=== PATIENT | female | born 1970 | race Caucasian/White ===

== ENCOUNTER → 2016-08-09 | Outpatient (CLI) | payer MEDICAID ==
--- NOTE | 2016-08-10 09:14 | MM ---
Reason for exam: screening (asymptomatic). Last mammogram was performed 1 year and 3 months ago. History: Patient had first child at age 34. Benign right mammotome panel of the right breast, September 25, 2012. Physical Findings: A clinical breast exam by your physician is recommended on an annual basis and results should be correlated with mammographic findings. MG 3D Screening Mammo W/Cad Bilateral CC and MLO view(s) were taken. Prior study comparison: May 10, 2015, bilateral MG screening mammo w CAD. April 20, 2014, bilateral MG diagnostic mammo w CAD [facility]. The breast tissue is heterogeneously dense. This may lower the sensitivity of mammography. There is no discrete abnormality. No significant changes when compared with prior studies. ASSESSMENT: Negative, BI-RAD 1 RECOMMENDATION: Routine screening mammogram of both breasts in 1 year.
== END | disposition home or self-care (01) ==
LOC: RADMAMWWP 08:49
PROVIDERS: ATTEND Obstetrics & Gynecology
DX: Z12.31 Encounter for screening mammogram for malignant neoplasm of breast (principal)
CPT/HCPCS: 77063; G0202

== ENCOUNTER → 2017-03-30 | Outpatient (CLI) | payer MEDICAID ==
--- NOTE | 2017-03-30 15:06 | XR ---
EXAMINATION TYPE: XR foot complete RT DATE OF EXAM: 03/30/2017 COMPARISON: NONE HISTORY: Pain TECHNIQUE: Three views are submitted. FINDINGS: The osseous structures are intact . There is no acute fracture or dislocation. There is hypertrophic change of the head of the first metatarsal compatible with bunion. Narrowing of the joint space. No erosive changes IMPRESSION: 1. First MTP joint arthropathy correlate for bunion.
== END ==
LOC: RADXRMAIN 14:41
PROVIDERS: ATTEND Orthopaedic Surgery
DX: M19.071 Primary osteoarthritis, right ankle and foot (principal)

== ENCOUNTER → 2017-08-16 | Outpatient (CLI) | payer BC ==
[2017-08-16 08:00] LABS: T4, Free (Free Thyroxine) 0.77 ng/dL (0.78-2.19)
--- NOTE | 2017-08-17 09:25 | MM ---
Reason for exam: screening (asymptomatic). Last mammogram was performed 1 year ago. History: Patient had first child at age 34. Benign right mammotome panel of the right breast, September 25, 2012. Physical Findings: A clinical breast exam by your physician is recommended on an annual basis and results should be correlated with mammographic findings. MG Screening Mammo w CAD Bilateral CC and MLO view(s) were taken. Prior study comparison: August 09, 2016, bilateral MG 3d screening mammo w/cad. May 10, 2015, bilateral MG screening mammo w CAD. The breast tissue is heterogeneously dense. This may lower the sensitivity of mammography. No suspicious abnormality. Right biopsy marker central lower breast at posterior depth. No significant changes when compared with prior studies. ASSESSMENT: Negative, BI-RAD 1 RECOMMENDATION: Routine screening mammogram of both breasts in 1 year.
== END | disposition home or self-care (01) ==
LOC: RADMAMWWP 07:08
PROVIDERS: ATTEND Obstetrics & Gynecology
DX: Z12.31 Encounter for screening mammogram for malignant neoplasm of breast (principal); E78.4 Other hyperlipidemia
CPT/HCPCS: 77067; 80061; 82947; 84439; 84443

== ENCOUNTER → 2018-12-13 | Outpatient (CLI) | payer BC ==
--- NOTE | 2018-12-17 09:44 | MM ---
Reason for exam: screening (asymptomatic). Last mammogram was performed 1 year and 4 months ago. History: Patient had first child at age 34. Benign right mammotome panel of the right breast, September 25, 2012. Physical Findings: A clinical breast exam by your physician is recommended on an annual basis and results should be correlated with mammographic findings. MG 3D Screening Mammo W/Cad Bilateral CC and MLO view(s) were taken. Prior study comparison: August 16, 2017, bilateral MG screening mammo w CAD. August 09, 2016, bilateral MG 3d screening mammo w/cad. The breast tissue is heterogeneously dense. This may lower the sensitivity of mammography. Benign appearing bilateral calcifications. Previous mammotome biopsy in the right breast. No significant changes when compared with prior studies. ASSESSMENT: Benign, BI-RAD 2 RECOMMENDATION: Routine screening mammogram of both breasts in 1 year.
== END | disposition home or self-care (01) ==
LOC: RADMAMWWP 10:47
PROVIDERS: ATTEND Obstetrics & Gynecology
DX: Z12.31 Encounter for screening mammogram for malignant neoplasm of breast (principal)
CPT/HCPCS: 77063; 77067

== ENCOUNTER → 2020-01-19 | Outpatient (CLI) | payer BC ==
--- NOTE | 2020-01-21 10:20 | MM ---
Reason for exam: screening (asymptomatic). Last mammogram was performed 1 year and 1 month ago. History: Patient had first child at age 34. Benign right mammotome panel of the right breast, September 25, 2012. Took hormonal contraceptives for 12 years. Physical Findings: A clinical breast exam by your physician is recommended on an annual basis and results should be correlated with mammographic findings. MG 3D Screening Mammo W/Cad Bilateral CC and MLO view(s) were taken. Prior study comparison: December 13, 2018, bilateral MG 3d screening mammo w/cad. August 16, 2017, bilateral MG screening mammo w CAD. The breast tissue is heterogeneously dense. This may lower the sensitivity of mammography. No significant changes when compared with prior studies. ASSESSMENT: Benign, BI-RAD 2 RECOMMENDATION: Routine screening mammogram of both breasts in 1 year.
== END | disposition home or self-care (01) ==
LOC: RADMAMWWP 09:35
PROVIDERS: ATTEND Obstetrics & Gynecology
DX: Z12.31 Encounter for screening mammogram for malignant neoplasm of breast (principal)
CPT/HCPCS: 77063; 77067

== ENCOUNTER → 2021-03-17 | Outpatient (CLI) | payer BC ==
--- NOTE | 2021-03-18 13:14 | MM ---
Reason for exam: screening (asymptomatic). Last mammogram was performed 1 year and 2 months ago. History: Patient had first child at age 34. Benign right mammotome panel of the right breast, September 25, 2012. Took hormonal contraceptives for 12 years. Physical Findings: A clinical breast exam by your physician is recommended on an annual basis and results should be correlated with mammographic findings. MG 3D Screening Mammo W/Cad Bilateral CC and MLO view(s) were taken. Prior study comparison: January 19, 2020, bilateral MG 3d screening mammo w/cad. December 13, 2018, bilateral MG 3d screening mammo w/cad. The breast tissue is heterogeneously dense. This may lower the sensitivity of mammography. There is no discrete abnormality. No significant changes when compared with prior studies. ASSESSMENT: Negative, BI-RAD 1 RECOMMENDATION: Routine screening mammogram of both breasts in 1 year.
== END | disposition home or self-care (01) ==
LOC: RADMAMWWP 09:52
PROVIDERS: ATTEND Obstetrics & Gynecology

== ENCOUNTER → 2021-03-17 | Outpatient (CLI) | payer BC ==
[2021-03-18 01:11] LABS: African American GFR (CKD) 100.3 (60.0-200.0); Albumin 4.6 g/dL (3.80-4.90); Albumin/Globulin Ratio 1.92 (1.60-3.17); Anion Gap 11.7 mmol/L (4.00-12.00); BUN/Creat Ratio 17.5 Ratio (12.00-20.00); Calcium 9.7 mg/dL (8.7-10.3); Carbon Dioxide 23.3 mmol/L (21.6-31.8); Chol/HDL Ratio 2.37; Globulin 2.4 g/dL (1.6-3.3); LDL Cholesterol,Calculated 99.8 mg/dL (0.0-131.0); Non-African American GFR(CKD) 86.6 (60.0-200.0); Potassium 4.8 mmol/L (3.5-5.5); Total Bilirubin 0.6 mg/dL (0.2-1.2); VLDL Calculation 12.2 mg/dL (5.00-40.00)
== END | disposition home or self-care (01) ==
LOC: LABWHC1 08:57
PROVIDERS: ATTEND Nurse Practitioner
DX: Z00.00 Encounter for general adult medical examination without abnormal findings (principal); M79.10 Myalgia, unspecified site; E55.9 Vitamin D deficiency, unspecified; Z20.822 Contact with and (suspected) exposure to COVID-19
CPT/HCPCS: 36415; 80053; 80061; 82306; 83036; 84443

== ENCOUNTER → 2022-03-13 | Outpatient (CLI) | payer BC ==
[2022-03-13 11:36] LABS: ALT 18 U/L (8-44); AST 21 U/L (13-35); African American GFR (CKD) 90.2 (60.0-200.0); Albumin 4.6 g/dL (3.8-4.9); Albumin/Globulin Ratio 2.41 (1.60-3.17); Alkaline Phosphatase 43 U/L (41-126); BUN/Creat Ratio 14.38 Ratio (12.00-20.00); Blood Urea Nitrogen 12.5 mg/dL (9.0-27.0); Calcium 9.4 mg/dL (8.7-10.3); Carbon Dioxide 27.1 mmol/L (20.0-27.5); Chloride 103 mmol/L (96-109); Chol/HDL Ratio 2.25 Ratio; Globulin 1.9 g/dL (1.6-3.3); Glucose 89 mg/dL (70-110); LDL Cholesterol,Calculated 85.6 mg/dL (0.0-131.0); Non-African American GFR(CKD) 77.8 (60.0-200.0); Sodium 140 mmol/L (135-145); Total Protein 6.5 g/dL (6.2-8.2); VLDL Calculation 11.68 mg/dL (5.00-40.00)
== END | disposition home or self-care (01) ==
LOC: LABWHC1 07:50
PROVIDERS: ATTEND Nurse Practitioner
DX: Z00.00 Encounter for general adult medical examination without abnormal findings (principal); E55.9 Vitamin D deficiency, unspecified
CPT/HCPCS: 36415; 80053; 80061; 82306; 83036; 84443

== ENCOUNTER → 2022-03-22 | Outpatient (CLI) | payer BC ==
--- NOTE | 2022-03-24 11:40 | MM ---
Reason for Exam: Screening (asymptomatic). Last screening mammogram was performed 12 month(s) ago. Patient History: Menarche at age 13. First Full-Term at age 34. Late child-bearing (after 30). Patient used Hormonal Contraceptives for 12 years. 09/25/2012, Benign Core Biopsy on the right side. Paternal aunt had breast cancer. Last menstrual period: 02/20/2022 Risk Values: Meagan 5 year model risk: 1.6%. NCI Lifetime model risk: 14.2%. Prior Study Comparison: 12/13/2018 Bilateral Screening Mammogram, [facility]. 01/19/2020 Bilateral Screening Mammogram, [facility]. 03/17/2021 Bilateral Screening Mammogram, [facility]. Tissue Density: The breast tissue is heterogeneously dense. This may lower the sensitivity of mammography. Findings: Analyzed By CAD. Previous mammotome biopsy in the right breast. A few punctate calcifications subareolar left breast are typically benign. Otherwise, no discrete abnormality. Overall Assessment: Benign, BI-RAD 2 Management: Screening Mammogram of both breasts in 1 year. A clinical breast exam by your physician is recommended on an annual basis and results should be correlated with mammographic findings. Electronically signed and approved by: Moni Cullen M.D. Radiologist
== END | disposition home or self-care (01) ==
LOC: RADMAMWWP 13:19
PROVIDERS: ATTEND Obstetrics & Gynecology
DX: Z12.31 Encounter for screening mammogram for malignant neoplasm of breast (principal); Z80.3 Family history of malignant neoplasm of breast; Z98.890 Other specified postprocedural states
CPT/HCPCS: 77063; 77067

== ENCOUNTER → 2022-04-07 | Outpatient (CLI) | payer BC | END | disposition home or self-care (01) | LOC: LABWHC1 07:43 | PROVIDERS: ATTEND Nurse Practitioner | DX: Z91.018 Allergy to other foods (principal); J39.2 Other diseases of pharynx; R22.0 Localized swelling, mass and lump, head | CPT/HCPCS: 36415; 82784; 86001 ==

== ENCOUNTER → 2022-04-13 | Outpatient (CLI) | payer BC ==
[2022-04-14 14:27] LABS: Crab IgE <0.10 kU/L (<0.10); Crab IgE Class CLASS 0; Gluten IgE Class CLASS 0; Salmon IgE <0.10 kU/L (<0.10); Salmon IgE Class CLASS 0; Yeast Bakers/Brew IgE <0.10 kU/L (<0.10); Yeast Bakers/Brew IgE Class CLASS 0
[2022-04-14 14:28] LABS: Avocado Class CLASS 0; Banana IgE Class CLASS 0; Hazelnut IgE <0.10 kU/L (<0.10); Hazelnut IgE Class CLASS 0; Kiwi IgE <0.10 kU/L (<0.10); Kiwi IgE Class CLASS 0; Lobster IgE <0.10 kU/L (<0.10); Lobster IgE Class CLASS 0
[2022-04-14 16:21] LABS: Shrimp IgE <0.10 kU/L; Walnut IgE (Food) <0.10 kU/L
== END | disposition home or self-care (01) ==
LOC: LABWHC1 15:39
PROVIDERS: ATTEND Otolaryngology
DX: L50.0 Allergic urticaria (principal); J30.89 Other allergic rhinitis; B44.89 Other forms of aspergillosis
CPT/HCPCS: 36415; 86001; 86003

== ENCOUNTER → 2022-04-18 | Outpatient (CLI) | payer BC ==
[2022-04-18 22:49] LABS: Egg White IgE <0.10 kU/L; Peanut IgE <0.10 kU/L; Soybean IgE <0.10 kU/L
[2022-04-19 11:00] LABS: Almond IgE <0.10 kU/L (<0.10); Almond IgE Class CLASS 0
[2022-04-19 11:01] LABS: Pecan IgE <0.10 kU/L (<0.10); Pecan IgE Class CLASS 0; Potato IgE <0.10 kU/L (<0.10); Potato IgE Class CLASS 0
== END | disposition home or self-care (01) ==
LOC: LABWHC1 11:09
PROVIDERS: ATTEND Otolaryngology
DX: J30.89 Other allergic rhinitis (principal)
CPT/HCPCS: 36415; 86003

== ENCOUNTER → 2023-04-20 | Outpatient (CLI) | payer MEDICAID ==
[2023-04-20 11:09] LABS: Basophils # (A) 0.05 X 10*3/uL (0.00-0.10); Eosinophils # (A) 0.06 X 10*3/uL (0.04-0.35); Eosinophils % (A) 1.1 %; HCT 42.5 % (37.2-46.3); HGB 13.5 d/dL (12.0-15.0); Lymphocytes # (A) 1.27 X 10*3/uL (0.90-5.00); Lymphocytes % (A) 24.3 %; MCH 30.6 pg (27.0-32.0); MCHC 31.8 d/dL (32.0-37.0); MCV 96.4 FL (80.0-97.0); Mean Platelet Volume 9.5 FL (9.5-12.2); Monocytes # (A) 0.44 X 10*3/uL (0.20-1.00); Monocytes % (A) 8.4 %; NRBC Per 100 WBC 0 X 10*3/uL (0.00-0.01); Platelet Count 278 X 10*3/uL (140-440); RBC 4.41 X 10*6/uL (4.10-5.20); RDW 11.7 % (11.5-14.5); WBC 5.23 X 10*3/uL (4.50-10.00)
[2023-04-20 14:13] LABS: ALT 17 U/L (8-44); AST 14 U/L (13-35); Albumin 4.4 d/dL (3.8-4.9); Alkaline Phosphatase 44 U/L (41-126); BUN/Creat Ratio 16.38 Ratio (12.00-20.00); Blood Urea Nitrogen 13.1 mg/dL (9.0-27.0); Calcium 9.2 mg/dL (8.7-10.3); Carbon Dioxide 25.8 mmol/L (21.6-31.8); Chloride 104 mmol/L (96-109); Chol/HDL Ratio 2.15 Ratio; Glucose 76 mg/dL (70-110); LDL Cholesterol,Calculated 74.1 mg/dL (0.0-131.0); Sodium 139 mmol/L (135-145); Total Bilirubin 0.4 mg/dL (0.3-1.2); Total Protein 6.4 d/dL (6.2-8.2); VLDL Calculation 13.24 mg/dL (5.00-40.00)
== END | disposition home or self-care (01) ==
LOC: LABWHC1 07:22
PROVIDERS: ATTEND Nurse Practitioner
DX: Z00.00 Encounter for general adult medical examination without abnormal findings (principal); H60.543 Acute eczematoid otitis externa, bilateral; E55.9 Vitamin D deficiency, unspecified; Z91.018 Allergy to other foods
CPT/HCPCS: 36415; 80053; 80061; 84480; 85025

== ENCOUNTER 2023-07-27 07:14 | Day surgery (SDC) | payer MEDICAID ==
[2023-07-23 16:24] VITALS: BMI 22.4
[~2023-07-27 07:14] MED LIST: DEXAMETHASONE SOD PHOSPHATE 4 MG/ML 1 ML VIAL IV ONE; HYDROmorphone 0.5 MG/0.5 ML SYRINGE IVP PRN; LACTATED RINGERS 1,000 ML IV SCH; MIDAZOLAM 2 MG/2 ML VIAL IV PRN; ONDANSETRON 4 MG/2 ML VIAL IVP ONE; SCOPOLAMINE 1 MG/72 HR PATCH TRANSDERM ONE
[2023-07-27 07:48] VITALS: RESP 16; TEMP 97.7
[2023-07-27] MEDS ORDERED: KETOROLAC 30 MG/ML 1 ML VIAL ONE (11:31)
[2023-07-27] MEDS ORDERED: LIDOCAINE 1% INJ 10MG/ML (20 ML MDV) ONE (11:31)
[2023-07-27] MEDS ORDERED: PROPOFOL 10 MG/ML 20 ML VIAL IV ONE (11:31)
[2023-07-27] MEDS ORDERED: ACETAMINOPHEN IV (For NPO) 1,000 MG/100 ML VIAL ONE (11:31)
[2023-07-27] MEDS ORDERED: fentaNYL (PF) 50 MCG/ML 2 ML AMP ONE (11:31)
[2023-07-27] MEDS ORDERED: MIDAZOLAM 2 MG/2 ML VIAL ONE (11:31)
[2023-07-27] MEDS ORDERED: ceFAZolin 1,000 MG in SODIUM CHLORIDE 0.9% 1,000 ML IRRIGATION ONE (11:33)
[2023-07-27] MEDS ORDERED: BUPIVACAINE (PF) 0.25% 30 ML VIAL SQ ONE (11:45)
[2023-07-27] MEDS ORDERED: LACTATED RINGERS 1,000 ML IV ONE (12:30)
--- NOTE | 2023-07-27 12:37 | P.OP ---
Date of Procedure: 07/27/23 Preoperative Diagnosis: Hallux rigidus right foot Postoperative Diagnosis: Same Procedure(s) Performed: First metatarsal phalangeal joint implant arthroplasty right foot Implants: Arthrosurface first metatarsal head implant 4.5 mm x 1.5 mm offset Anesthesia: GETA Surgeon: Tyson Bernal Estimated Blood Loss (ml): 2 Pathology: none sent Condition: stable Disposition: PACU Description of Procedure: The patient was brought into the operating room and placed on table supine position. Timeout was taken to confirm correct patient identifiers, correct laterally surgery, and correct procedure. When all staff in the room were in agreement the timeout, the patient was induced and placed under general anesthesia. A well-padded tourniquet was placed on the ankle and then 20 mL of 0.25% Marcaine was injected as an ankle block. The foot was then prepped and draped in the usual manner. The foot was exsanguinated and the tourniquet inflated to 250 mmHg. Attention was directed over the dorsomedial aspect of the first metatarsal phalangeal joint, where a linear incision was made between the long extensor tendon and the neurovascular structures. The incision was deepened down to the subcutaneous tissue careful to identify, avoid, and retract any neurovascular structures and cauterize any bleeding vessels. Blunt dissection was then carried down to the periosteum and capsule around the first metatarsal phalangeal joint. A linear periosteal and capsular incision was made medial to the extensor tendon. The periosteal and capsular tissues were reflected from the osseous attachments of the first metatarsal head and base of the proximal phalanx. Visual inspection of the articular surface of the first metatarsal head showed greater than 50% full-thickness erosion of the articular cartilage and thinning of the remainder cartilage with fraying on the plantar aspect. A sagittal saw was used to resect the osteophytes of the dorsal aspect of the first metatarsal head but not aggressively so I did not disrupt the bony foundation for the implant placement. Guidewires placed in the central aspect of the first metatarsal head and, under fluoroscopy, guided in the first metatarsal shaft parallel to the long axis. Once the pin was properly po sitioned the reamer was inserted and taken down to proper depth. The tap was inserted and taken down to the laser line when aligned up with the articular cartilage surface. Then the implant was inserted it was taken down to the laser line at the articular surface and then advanced 1 additional millimeter for decompression. The reamer was placed over the guidewire and then activated and advanced until it stopped on the implant. The trial was placed and showed proper fit. There was increased range of motion the first metatarsal phalangeal joint. The sesamoid apparatus glided normally with dorsiflexion of the first metatarsal phalangeal joint. With the trial implants still in place the excessive bone medially laterally and plantarly was resected carefully so as not to disrupt the shelf of bone with the implant would sit. Once completed the trial was removed and the area thoroughly irrigated with antibiotic saline. The joint implant was then positioned and placed into the anchor. And then impacted into place. Fluoroscopy was then taken that show the implant properly aligned. A lateral view was also done with the first metatarsal phalangeal joint maximally dorsiflexed to show how much motion was available. The wound is then thoroughly irrigated with antibiotic saline. The capsule was repaired with 0 Vicryl. Subcu closure was done with 3-0 Monocryl. And skin closure was done with 4-0 Stratafix in a running subcuticular manner. Dermal glue was placed over the incision and allowed to dry. Steri-Strips were then applied across incision. An Arthrex jumpstart dressing was applied over the incision and then a dry sterile dressing applied to the foot. The tourniquet was released and capillary refill return to all digits on the left foot. The patient tolerated the above procedure and anesthesia well. Patient left the operating room to recovery with vital signs stable
[2023-07-27] MEDS ORDERED: ONDANSETRON 4 MG/2 ML VIAL ONE (13:37)
[2023-07-27] MEDS ORDERED: ONDANSETRON 4 MG/2 ML VIAL IVP ONE (13:40)
[2023-07-27] MEDS ORDERED: METOCLOPRAMIDE 5 MG/ML 2 ML VIAL ONE (14:15)
[2023-07-27] MEDS ORDERED: METOCLOPRAMIDE 5 MG/ML 2 ML VIAL IVP ONE (14:17)
[2023-07-27 15:06] VITALS: BP 92/50; PULSE 53
== END 2023-07-27 14:52 | disposition home or self-care (01) ==
LOC: OR 07:14
PROVIDERS: ATTEND Podiatrist
DX: M20.21 Hallux rigidus, right foot (principal); Z88.2 Allergy status to sulfonamides; Z79.899 Other long term (current) drug therapy
CPT/HCPCS: 81025; 28291; C1776; J2250; J1100; J2765; J0690 ×2; J2405; J2001; J3010; J1885; J0131; J2704; J0665

== ENCOUNTER → 2024-03-31 | Outpatient (CLI) | payer MEDICAID ==
--- NOTE | 2024-04-01 10:00 | MM ---
Reason for Exam: Screening (asymptomatic). Last screening mammogram was performed 12 month(s) ago. Patient History: Menarche at age 13. First Full-Term at age 34. Late child-bearing (after 30). Patient has history of breast feeding. Patient used Hormonal Contraceptives for 12 years. 09/25/2012, Benign Core Biopsy on the right side. Paternal aunt had breast cancer. Risk Values: Meagan 5 year model risk: 1.7%. NCI Lifetime model risk: 13.7%. Prior Study Comparison: 03/17/2021 Bilateral Screening Mammogram, [facility]. 03/22/2022 Bilateral MG 3D screening mammo w/cad, [facility]. 03/28/2023 Bilateral MG 3D screening mammo w/cad, [facility]. Tissue Density: There are scattered areas of fibroglandular density. Findings: Analyzed By CAD. Right breast: There is no suspicious group of microcalcifications or new suspicious mass. Left breast: There is no suspicious group of microcalcifications or new suspicious mass. Overall Assessment: Negative, BI-RAD 1 Management: Screening Mammogram of both breasts in [address] [facility] will attempt to contact patient to return for supplemental views and ultrasound if indicated. Patient should continue monthly self-breast exams. A clinical breast exam by your physician is recommended on an annual basis. This exam should not preclude additional follow-up of suspicious palpable abnormalities. Note on Meagan scores and lifetime risk: 1. A Meagan score greater than 3% is considered moderate risk. If this is the case, consider specialist referral to assess eligibility for a risk reducing agent. 2. If overall lifetime risk for the development of breast cancer is 20% or higher, the patient may qualify for future screening with alternating mammogram and breast MRI. [facility], , 04/01/2024 9:57 AM. Electronically signed and approved by: Jacinto Esposito DO
== END | disposition home or self-care (01) ==
LOC: RADMAMWWP 14:51
PROVIDERS: ATTEND Obstetrics & Gynecology Obstetrics
DX: Z12.31 Encounter for screening mammogram for malignant neoplasm of breast
CPT/HCPCS: 77063; 77067